=== PATIENT | male | born 2005 | race African-American/Black ===

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

== ENCOUNTER 2025-01-22 14:45 | Emergency (ER) | payer OTHER ==
[~2025-01-22] VITALS: Ht 188 cm; Wt 104.1 kg
[~2025-01-22 14:45] MED LIST: PRED10TA2 PO; VENTAER INH
[2025-01-22 16:08] LABS: KETONE, URINE AUTO RFX 1+ mg/dL (NEGATIVE); MUCUS, URINE RFX SMALL (NEGATIVE); NITRITE, URINE AUTO RFX NEGATIVE (NEGATIVE); RBC, URINE AUTO RFX 1 /HPF (0-3); SQUAM EPITHELIAL CELL UR AURFX 7 /HPF (0-6)
[2025-01-22 17:20] LABS: Trichomonas vaginalis (AMP) NOT DETECTED (NEGATIVE)
[2025-01-22 17:42] LABS: LEUKOCYTE ESTERASE UR AUTO RFX TRACE (NEGATIVE); WBC, URINE AUTO RFX 12 /HPF (0-3)
[2025-01-22 17:43] LABS: GC DNA AMPLIFICATION NEGATIVE (NEGATIVE)
[2025-01-22 18:21] VITALS: BP 126/84; TEMP 97.3; O2SAT 98
== END 2025-01-22 18:22 | disposition home or self-care (01) ==
LOC: M ED 14:45
DX: R36.9 Urethral discharge, unspecified (principal); Z11.3 Encounter for screening for infections with a predominantly sexual mode of transmission